=== PATIENT | male | born 1980 | race Caucasian/White ===

== ENCOUNTER 2022-04-20 20:39 | Inpatient (IN) | payer OTHER ==
[2022-04-20 21:41] LABS: Absolute Lymphocytes (CBC) 2.7 K/uL (0.7-4.9); Hematocrit 44.6 % (39.6-49.0); Lymphocytes % 34.3 % (15.3-44.8); MCV 94.3 fL (80-100); MPV 7.5 fL (7.6-11.3); RBC Red Blood Cell Count 4.73 M/uL (4.33-5.43)
[2022-04-20 21:49] LABS: Protime INR 1.06
[2022-04-20] MEDS ORDERED: MECLIZINE HCL 12.5 MG TAB ONE (22:02)
[2022-04-20] MEDS ORDERED: NA CHLORIDE 0.9% 1,000 ML ONE (22:03)
[2022-04-20 22:10] LABS: Barbiturates NEGATIVE (NEGATIVE); Benzodiazepines POSITIVE (NEGATIVE); Cocaine NEGATIVE (NEGATIVE); METHAMPHETAM NEGATIVE (NEGATIVE); Methadone NEGATIVE (NEGATIVE); Opiates NEGATIVE (NEGATIVE); Phencyclidine NEGATIVE (NEGATIVE); THC Cannibis NEGATIVE (NEGATIVE)
[2022-04-20 22:14] LABS: Potassium 3.4 mmol/L (3.5-5.1)
--- NOTE | 2022-04-20 22:14 | RAD REPORT ---
EXAM DESCRIPTION: CT - Head Brain Wo Cont - 04/20/2022 10:04 pm CLINICAL HISTORY: dizziness, diplopia COMPARISON: None TECHNIQUE: All CT scans are performed using dose optimization technique as appropriate and may inclu de automated exposure control or mA/KV adjustment according to patient size. FINDINGS: No intracranial hemorrhage, hydrocephalus or extra-axial fluid collection.No areas of brai n edema or evidence of midline shift. Anthony cisterna magna. The paranasal sinuses and mastoids are clear. The calvarium is intact. IMPRESSION: No acute intracranial abnormality.
--- NOTE | 2022-04-20 22:15 | RAD REPORT ---
EXAM DESCRIPTION: CT - Neck Angio - 04/20/2022 10:08 pm CLINICAL HISTORY: dizziness, diplopia COMPARISON: No comparisons TECHNIQUE: CT angiography of the neck vessels was performed with MIPs. All CT scans are performed using dose optimization technique as appropriate and may include automated exposure control or mA/KV adjustment according to patient size. FINDINGS: A left aortic arch is identified with normal three vessel configuration of the great vesse ls. No significant flow abnormality is seen of the common carotid bilaterally. No significant stenosis is identified involving the cervical segments of both internal carotid arteri es. Normal flow is seen within both vertebral arteries. IMPRESSION: No significant flow abnormality of the neck vessels is identified.
[2022-04-20 22:16] LABS: SARS-CoV-2 Antigen Rapid Res Negative (Negative)
--- NOTE | 2022-04-20 22:16 | RAD REPORT ---
EXAM DESCRIPTION: CT - Head angio - 04/20/2022 10:08 pm CLINICAL HISTORY: dizziness, diplopia COMPARISON: No comparisons TECHNIQUE: CT angiography of the head was performed with MIPs. All CT scans are performed using dose optimization technique as appropriate and may include automated exposure control or mA/KV adjustment according to patient size. FINDINGS: Anterior circulation: No aneurysm or large vessel occlusion. No hemodynamically significant stenosis. No arteriovenous malf ormation identified. Posterior circulation: No aneurysm or large vessel occlusion. No hemodynamically significant stenosis. No arteriovenous malf ormation identified. IMPRESSION: No significant flow abnormality is detected.
--- NOTE | 2022-04-20 22:23 | ER ---
Nurse's Notes [facility] Name: Frandy Victor Age: 41 yrs Sex: Male : 1980 Arrival Date: 04/20/2022 Time: 20:40 Bed 5 Private MD: Diagnosis: Ataxia, unspecified;Unspecified nystagmus;Phenytoin toxicity Presentation: 04/20 20:46 Chief complaint: Patient states: I have been feeling dizzy for the past three days. kd3 Chief complaint: EMS states: pt. has been complaining of dizziness for the past three days. pt. states took sister's Trazodone yesterday and also reports vomiting this morning. vital signs stables during transport. Ebola Screen: No symptoms or risks identified at this time. Initial Sepsis Screen: Does the patient meet any 2 criteria? No. Patient's initial sepsis screen is negative. Does the patient have a suspected source of infection? No. Patient's initial sepsis screen is negative. Risk Assessment: Do you want to hurt yourself or someone else? Patient reports no desire to harm self or others. Onset of symptoms was April 17, 2022. 20:46 Method Of Arrival: EMS: [facility] kd3 20:46 Acuity: DAVID 3 kd3 23:51 Coronavirus screen: Vaccine status: Patient reports being unvaccinated. ha1 Triage Assessment: 20:46 General: Appears in no apparent distress. Behavior is calm, cooperative. Pain: Denies kd3 pain. Historical: - Allergies: 22:11 Keppra; kd3 - Immunization history:: Client reports receiving the 2nd dose of the Covid vaccine. - Social history:: Smoking status: unknown. - Family history:: not pertinent. - Hospitalizations: : No recent hospitalization is reported. Screenin:40 Abuse screen: Denies threats or abuse. Denies injuries from another. kd3 20:40 Nutritional screening: No deficits noted. Tuberculosis screening: No symptoms or risk kd3 factors identified. Fall Risk Gait- Weak (10 pts.). Total Renee Fall Scale indicates No Risk (0-24 pts). Assessment: 20:41 General: Appears in no apparent distress. Behavior is calm, cooperative. Pain: Denies kd3 pain. Neuro: Reports diplopia, dizziness. Neuro: Oriented to person, place, time, situation, Speech is normal. Cardiovascular: Capillary refill < 3 seconds Patient's skin is warm and dry. Respiratory: Airway is patent Trachea midline Respiratory effort is even, unlabored, Respiratory pattern is regular, symmetrical. GI: No signs and/or symptoms were reported involving the gastrointestinal system. : No signs and/or symptoms were reported regarding the genitourinary system. EENT: No deficits noted. No signs and/or symptoms were reported regarding the EENT system. Derm: Reports felling at home three days ago and bruise his face. 21:35 Reassessment: Patient and/or family updated on plan of care and expected duration. Pain kd3 level reassessed. Patient is alert, oriented x 3, equal unlabored respirations, skin warm/dry/pink. Vital Signs: 20:44 BP 125 / 85; Pulse 88; Resp 16 S; Temp 98.9; Pulse Ox 95% on R/A; Weight 63.5 kg; kd3 21:45 BP 117 / 89; Pulse 83; Resp 18 S; Pulse Ox 98% on R/A; kd3 ED Course: 20:40 Patient arrived in ED. kd3 20:43 Neeraj Glover MD is Attending Physician. rn 20:46 Arm band placed on right wrist. kd3 20:46 Patient has correct armband on for positive identification. Bed in low position. Call kd3 light in reach. Side rails up X 1. 20:51 Triage completed. kd3 20:54 Irasema Ying, RN is Primary Nurse. kd3 21:26 Basic Metabolic Panel Sent. kd3 21:27 CBC with Diff Sent. kd3 21:27 Magnesium Sent. kd3 21:27 Inserted saline lock: 20 gauge in left antecubital area, using aseptic technique. Blood kd3 collected. 21:49 SARS RAPID Sent. kd3 21:50 Basic Metabolic Panel Sent. kd3 21:50 Magnesium Sent. kd3 21:59 SARS RAPID Sent. kd3 22:06 CT Head Brain wo Cont In Process Unspecified. EDMS 22:09 CT Head Angio In Process Unspecified. EDMS 22:[address] In Process Unspecified. EDMS 22:21 Chilango Mcallister MD is Hospitalizing Provider. rn 23:51 No provider procedures requiring assistance completed. Patient admitted, IV remains in ha1 place. Administered Medications: 21:58 Drug: Meclizine 50 mg Route: PO; kd3 22:13 Follow up: Response: No adverse reaction kd3 21:59 Drug: NS 0.9% 1000 ml Route: IV; Rate: 1000 ml; Site: left antecubital; kd3 23:52 Follow up: IV Status: Infusion continued ha1 23:13 Drug: Nicoderm CQ Patch 21 mg/24 hr 21 mg Route: Transdermal; Site: right thigh; kd3 23:23 Drug: clonazePAM 1 mg Route: PO; kd3 23:52 Follow up: Response: No adverse reaction; Anxiety decreased ha1 Medication: 23:51 VIS not applicable for this client. ha1 Outcome: 22:22 Decision to Hospitalize by Provider. rn 23:51 Admitted to Med/surg ha1 23:51 Condition: stable 23:51 Discharge instructions given to patient, Instructed on the need for admit, Demonstrated understanding of instructions, follow-up care. 23:55 Patient left the ED. ha1 Signatures: Dispatcher [employer] EDMS Neeraj Glover MD MD rn Doucette, Kyli, RN RN 3 Angelica Yao RN RN ha1
--- NOTE | 2022-04-20 22:23 | EDPHYS ---
Physician Documentation [facility] Name: Frandy Victor Age: 41 yrs Sex: Male : 1980 Arrival Date: 04/20/2022 Time: 20:40 Bed 5 Private MD: ED Physician Neeraj Glover HPI: 04/20 20:59 This 41 yrs old Male presents to ER via EMS with complaints of dizziness. rn 20:59 The patient presents with vertigo. Onset: The symptoms/episode began/occurred 3 day(s) rn ago. Context: occurred at home, occurred while the patient was at rest. Modifying factors: The symptoms are alleviated by closing eyes, holding head still, lying down, the symptoms are aggravated by movement of head, standing up, changing position. Associated signs and symptoms: Pertinent positives: ataxia, double vision. Severity of symptoms: At their worst the symptoms were moderate in the emergency department the symptoms are unchanged. The patient has not experienced similar symptoms in the past. The patient has not recently seen a physician. Pt reports 3 days of vertigo, nausea, double vision. Reports symptoms of vertigo come and go, better with laying down and closing eyes. Has fallen several times, head injuries from falls, denies extremity injuries. Reports day prior to these symptoms took 2 trazodone from sister. No other medication changes recently. No seizures. No change to dilantin prescription recently. NO chest pain/sob/diarrhea. . Historical: - Allergies: 22:11 Keppra; kd3 - Immunization history:: Client reports receiving the 2nd dose of the Covid vaccine. - Social history:: Smoking status: unknown. - Family history:: not pertinent. - Hospitalizations: : No recent hospitalization is reported. ROS: 20:59 Constitutional: Negative for fever, chills, and weight loss, Eyes: + double vision, no rn eye pain ENT: Negative for injury, pain, and discharge, Neck: Negative for injury, pain, and swelling, Cardiovascular: Negative for chest pain, palpitations, and edema, Respiratory: Negative for shortness of breath, cough, wheezing, and pleuritic chest pain, Abdomen/GI: Negative for abdominal pain, vomiting, diarrhea, and constipation, Back: Negative for injury and pain, MS/Extremity: Negative for injury and deformity, Skin: Negative for injury, rash, and discoloration, Neuro: Negative for weakness, numbness, tingling, and seizure. Exam: 20:59 Constitutional: This is a well developed, well nourished patient who is awake, alert, rn and in no acute distress. Head/Face: Normocephalic, atraumatic. Eyes: Pupils equal round and reactive to light, extra-ocular motions intact. + diplopia with both eyes open, goes away when closing each eye. + nystagmus. ENT: dry MM Neck: Trachea midline, no thyromegaly or masses palpated, and no cervical lymphadenopathy. Supple, full range of motion without nuchal rigidity, or vertebral point tenderness. No Meningismus. Cardiovascular: Regular rate and rhythm. No pulse deficits. Respiratory: No increased work of breathing, no retractions or nasal flaring. Abdomen/GI: Soft, non-tender Skin: Warm, dry with normal turgor. Normal color with no rashes, no lesions, and no evidence of cellulitis. MS/ Extremity: Pulses equal, no cyanosis. Neurovascular intact. Full, normal range of motion. Equal circumference. Neuro: Awake and alert, GCS 15, oriented to person, place, time, and situation. Cranial nerves II-XII grossly intact. Motor strength 5/5 in all extremities. Sensory grossly intact. Abnormal finger to nose. Gait not tested. 22:27 ECG was reviewed by the Attending Physician. rn Vital Signs: 20:44 BP 125 / 85; Pulse 88; Resp 16 S; Temp 98.9; Pulse Ox 95% on R/A; Weight 63.5 kg; kd3 21:45 BP 117 / 89; Pulse 83; Resp 18 S; Pulse Ox 98% on R/A; kd3 MDM: 20:43 Patient medically screened. rn 22:18 Differential diagnosis: idiopathic dizziness, TIA, vertigo, dilantin toxicity, rn aneurysm. Differential diagnosis: CVA. Data reviewed: vital signs, nurses notes, lab test result(s), EKG, radiologic studies, CT scan, and as a result, I will admit patient. Counseling: I had a detailed discussion with the patient and/or guardian regarding: the historical points, exam findings, and any diagnostic results supporting the discharge/admit diagnosis, lab results, radiology results, the need for further work-up and treatment in the hospital. Response to treatment: the patient's symptoms have mildly improved after treatment, and as a result, I will admit patient. Admission orders: after a detailed discussion of the patient's condition and case, the admit orders are written by me. ED course: Dilantin level 38, neg ct head and CTA head/neck. Dilantin toxicity could explain ataxia/nausea/vomiting/nsytagmus. Will admit for symptoms and neuro consult. . 22:18 ED course: Not an acute overdose, likely chronic toxicity, patient with multiple rn bottles of phenytoin and may be taking incorrect amount. . 04/20 20:45 Order name: Dilantin; Complete Time: 22:36 rn 04/20 20:45 Order name: Basic Metabolic Panel; Complete Time: 22:36 rn 04/20 20:45 Order name: CBC with Diff; Complete Time: 22: rn 04/20 20:45 Order name: Magnesium; Complete Time: 22:36 rn 04/20 20:45 Order name: Protime (+inr); Complete Time: 22:13 rn 04/20 20:45 Order name: Ptt, Activated; Complete Time: 22: rn 04/20 20:45 Order name: CT Head Brain wo Cont; Complete Time: 22:17 rn 04/20 20:45 Order name: CT Head Angio; Complete Time: 22: rn 04/20 20:45 Order name: Neck Angio CT; Complete Time: 22: rn 04/20 20:45 Order name: UDS; Complete Time: 22:13 rn 04/20 20:45 Order name: SARS RAPID; Complete Time: 22: rn 04/20 22:24 Order name: Urine Dipstick-Ancillary; Complete Time: 22:25 EDOR 04/20 20:45 Order name: IV Start; Complete Time: 21:50 rn 04/20 20:45 Order name: EKG; Complete Time: 20:46 rn 04/20 20:45 Order name: Cardiac monitoring; Complete Time: 21:27 rn 04/20 20:45 Order name: EKG - Nurse/Tech; Complete Time: 21:49 rn 04/20 20:45 Order name: Labs collected and sent; Complete Time: 21:27 rn 04/20 20:45 Order name: O2 Per Protocol; Complete Time: 21:27 rn 04/20 20:45 Order name: O2 Sat Monitoring; Complete Time: 21:27 rn 04/20 20:45 Order name: Urine Dipstick-Ancillary (obtain specimen); Complete Time: 22:31 rn EC: Rate is 84 beats/min. Rhythm is regular. QRS [place] is Normal. SD interval is normal. QRS rn interval is normal. QT interval is normal. No Q waves. T waves are Normal. No ST changes noted. Clinical impression: Normal ECG. Interpreted by me. Reviewed by me. Administered Medications: :58 Drug: Meclizine 50 mg Route: PO; kd3 22:13 Follow up: Response: No adverse reaction kd3 21:59 Drug: NS 0.9% 1000 ml Route: IV; Rate: 1000 ml; Site: left antecubital; kd3 23:52 Follow up: IV Status: Infusion continued ha1 23:13 Drug: Nicoderm CQ Patch 21 mg/24 hr 21 mg Route: Transdermal; Site: right thigh; kd3 23:23 Drug: clonazePAM 1 mg Route: PO; kd3 23:52 Follow up: Response: No adverse reaction; Anxiety decreased ha1 Disposition Summary: 04/20/22 22:22 Hospitalization Ordered Hospitalization Status: Inpatient Admission rn Provider: Chilango Mcallister rn Condition: Stable rn Problem: new rn Symptoms: have improved rn Bed/Room Type: Standard rn Location: Telemetry/MedSurg (Inpatient)(04/20/22 22:55) mw Room Assignment: 203(04/20/22 23:01) mw Diagnosis - Ataxia, unspecified rn - Unspecified nystagmus rn - Phenytoin toxicity rn Forms: - Medication Reconciliation Form rn - SBAR form rn Signatures: Dispatcher [employer] Stormy Howe RN RN Neeraj Gonsales MD MD rn Doucette, Kyli, RN RN kd3 Luciana Wong PA PA sb3 Angelica Yao RN ha1 Corrections: (The following items were deleted from the chart) 22:55 22: Telemetry/MedSurg (Inpatient) rn mw 22:55 22:22 rn mw 22:55 22:55 203 mw mw 23:01 22:55 mw mw
[2022-04-20 22:24] LABS: Urine Blood Negative (Negative); Urine Glucose Negative (Negative); Urine Protein Negative (Negative); Urine pH 6.5 (5.0-7.0)
[2022-04-20 22:30] LABS: Phenytoin (Dilantin) Level 38.9 ug/mL (10.0-20.0)
--- NOTE | 2022-04-20 23:06 | P.HP ---
Certification for Inpatient Patient admitted to: Inpatient With expected LOS: <2 Midnights Patient will require the following post-hospital care: None Practitioner: I am a practitioner with admitting privileges, knowledge of patient current condition, hospital course, and medical plan of care. Services: Services provided to patient in accordance with Admission requirements found in Title 42 Section 412.3 of the Code of Federal Regulations Patient History Date of Service: 04/20/22 Reason for admission: Phenytoin Toxicity History of Present Illness: Patient is a an 41-year-old male with history of seizure disorder, mitral valve prolapse, and PTSD who presented to the ED with worsening dizziness for 3 days now. Patient reports that he has been taking Dilantin since 2007 and has never had any issues with it. He denies any recent change in dosing. However, he does state that he has been taking his sister's trazodone to help with his insomnia. Abrasions noted to his face from falling from dizziness/incoordination. Ataxia noted. Fine motor skills impaired- cannot successfully touch my finger to his nose repeatedly. His dilantin level was 38.9. Brain imaging negative. The drug interaction between dilantin and trazodone can cause an increase in dilantin levels and result in these symptoms. He was given meclizine and IVF in the ED. He is admitted for further management. Home medications list reviewed: Yes - Past Medical/Surgical History Diabetic: No -: Seizure Disorder -: PTSD -: Mitral Valve Prolapse -: Umbilical Hernia Repair Psychosocial/ Personal History: Patient just recently moved here from [place]. - Family History Mother -: Heart disease - Social History Smoking Status: Current every day smoker Alcohol use: No CD- Drugs: No Caffeine use: Yes Place of Residence: Home Review of Systems Eyes: Other (Nystagmus) Neurological: Incoordination, Other (Dizziness) Physical Examination - Physical Exam General: Alert, In no apparent distress HEENT: PERRLA, Other (abrasions noted to nose and forehead), Sclerae nonicteric Neck: Supple, No LAD Respiratory: Clear to auscultation bilaterally, Normal air movement Cardiovascular: Regular rate/rhythm, Normal S1 S2 Gastrointestinal: Normal bowel sounds, No tenderness Musculoskeletal: No tenderness Integumentary: No rashes Neurological: Normal strength at 5/5 x4 extr, Sensation intact, Normal affect, Abnormal gait - Studies Laboratory Data (last 24 hrs) 04/20/22 21:22: PT 11.7, INR 1.06, APTT 30.0 04/20/22 21:22: WBC 7.90, Hgb 16.0, Hct 44.6, Plt Count 243 04/20/22 21:22: Sodium 143, Potassium 3.4 L, BUN 5 L, Creatinine 0.94, Glucose 140 H, Magnesium 2.0 Assessment and Plan - Problems (Diagnosis) (1) Phenytoin toxicity Current Visit: Yes Status: Acute Qualifiers: Encounter type: initial encounter (2) Hypokalemia Current Visit: Yes Status: Acute (3) PTSD (post-traumatic stress disorder) Current Visit: Yes Status: Chronic (4) Seizure disorder Current Visit: Yes Status: Chronic - Plan -Symptoms- ataxia, dizziness, incoordination, are most likely secondary to phenytoin toxicity -Monitor patient on telemetry -Neurology consult -IV fluids -Meclizine PRN -Dilantin level daily -Monitor and replete electrolytes per protocol -Reconcile and continue home medications -Lovenox for VTE ppx -Full code Discharge Plan: Home Plan to discharge in: 48 Hours - Advance Directives Does patient have a Living Will: No Does patient have a Durable POA for Healthcare: No - Code Status/Comfort Care Code Status Assessed: Yes (Full) Critical Care: No Time Spent Managing Pts Care (In Minutes): 50
[2022-04-20] MEDS ORDERED: NICOTINE 21 MG/PAT TD ONE (23:12)
[2022-04-20] MEDS ORDERED: clonazePAM 1 MG TAB ONE (23:31)
[2022-04-20] MEDS ORDERED: ACETAMINOPHEN 500 MG TAB PO PRN (23:59)
[2022-04-20] MEDS ORDERED: clonazePAM 1 MG TAB PO PRN (23:59)
[2022-04-20] MEDS ORDERED: MECLIZINE HCL 12.5 MG TAB PO PRN (23:59)
[2022-04-20] MEDS ORDERED: ONDANSETRON 4 MG/2 ML VIAL IV PRN (23:59)
[2022-04-21] MEDS: NA CHLORIDE 0.9% 1,000 ML IV SCH ×4 (00:27→19:59)
[2022-04-21 01:26] VITALS: BMI 21.9
[2022-04-21] MEDS: TAMSULOSIN 0.4 MG SR CAP PO SCH ×2 (02:37→21:11)
[2022-04-21] MEDS: GABAPENTIN 300 MG CAP PO SCH ×3 (02:37→21:11)
[2022-04-21] MEDS: OLANZapine 10 MG TABLET PO SCH ×2 (02:38→21:10)
[2022-04-21] MEDS: TEMAZEPAM 15 MG CAP PO SCH ×2 (02:39→21:09)
[2022-04-21] MEDS: AMITRIPTYLINE 50 MG TAB PO SCH ×2 (02:39→21:11)
[2022-04-21 06:33] LABS: Absolute Lymphocytes (CBC) 2.5 K/uL (0.7-4.9); Lymphocytes % 38.7 % (15.3-44.8); MCV 94.1 fL (80-100); MPV 7.4 fL (7.6-11.3); RBC Red Blood Cell Count 4.26 M/uL (4.33-5.43)
[2022-04-21 07:08] LABS: Phosphorus 2.3 mg/dL (2.5-4.9); Potassium 3.5 mmol/L (3.5-5.1); Thyroid Stimulating Hormone 1.44 uIU/mL (0.360-3.740)
[2022-04-21 07:11] LABS: Phenytoin (Dilantin) Level 33.4 ug/mL (10.0-20.0)
[2022-04-21] MEDS: POTASS/SODIUM PHOSPHATE 1 PKT POWD.PACK PO SCH ×3 (08:39→11:12)
[2022-04-21] MEDS: NICOTINE 21 MG/PAT TD SCH (08:40)
[2022-04-21] MEDS: ENOXAPARIN 40 MG/0.4 ML SQ SCH (08:40)
[2022-04-21] MEDS ORDERED: POTASSIUM CL SA 10 MEQ TAB PO ONE (09:00)
[2022-04-21] MEDS: clonazePAM 1 MG TAB PO SCH (09:53)
[2022-04-21 11:40] VITALS: O2SAT 95
--- NOTE | 2022-04-21 13:43 | P.PN ---
Subjective Date of Service: 04/21/22 Chief Complaint: Phenytoin Toxicity Patient complaining of diplopia. Speech is also slurred. Phenytoin level trended down. Physical Examination - Vital Signs Temperature: 97.1 F Blood Pressure: 113/76 Pulse: 78 Respirations: 20 Pulse Ox (%): 95 - Studies Laboratory Data (last 24 hrs) 04/20/22 21:22: PT 11.7, INR 1.06, APTT 30.0 04/20/22 21:22: WBC 7.90, Hgb 16.0, Hct 44.6, Plt Count 243 04/20/22 21:22: Sodium 143, Potassium 3.4 L, BUN 5 L, Creatinine 0.94, Glucose 140 H, Magnesium 2.0 Assessment And Plan - Current Problems (Diagnosis) (1) Hypokalemia Current Visit: Yes Status: Acute (2) Phenytoin toxicity Current Visit: Yes Status: Acute Qualifiers: Encounter type: initial encounter (3) PTSD (post-traumatic stress disorder) Current Visit: Yes Status: Chronic (4) Seizure disorder Current Visit: Yes Status: Chronic - Plan Physical Exam General: Alert, In no apparent distress HEENT: abrasions noted to bridge of nose and forehead. Sclerae nonicteric, no nystagmus. Respiratory: Clear to auscultation bilaterally, Normal air movement Cardiovascular: Regular rate/rhythm, Normal S1 S2 Gastrointestinal: Normal bowel sounds, No tenderness Musculoskeletal: No tenderness Integumentary: No rashes Neurological: Normal strength at 5/5 x4 extr. Normal affect. Plan: Continue supportive measures with IV hydration. Continue to hold Dilantin Check serial phenytoin levels. Continue home medications for his other medical conditions. Monitor and optimize electrolytes.
[2022-04-21] MEDS ORDERED: ACETAMINOPHEN 325 MG TABLET PO PRN (13:47)
[2022-04-21] MEDS ORDERED: METHYLPHENIDATE HCL 20 MG PO SCH (14:00)
[2022-04-21] MEDS ORDERED: CELECOXIB 100 MG CAPSULE PO PRN (14:08)
[2022-04-21] MEDS: PANTOPRAZOLE 40MG TABLET PO SCH (15:52)
[2022-04-21] MEDS ORDERED: clonazePAM 1 MG TAB PO SCH (16:00)
[2022-04-21] MEDS: SUCRALFATE 1 GM TABLET PO SCH (21:09)
[2022-04-22] MEDS: NA CHLORIDE 0.9% 1,000 ML IV SCH (04:51)
--- NOTE | 2022-04-22 05:40 | EKG ---
Test Date: 2022-04-20 Test Time: 21:43:16 Air Bag Curer: MIRELLA MEASUREMENT RESULTS: Intervals: Rate: 84 IA: 138 QRSD: 88 QT: 386 QTc: 456 Accord: P: 76 IA: 138 QRS: 7 T: 70 INTERPRETIVE STATEMENTS: Normal sinus rhythm Normal ECG No previous ECG available for comparison Electronically Signed On 04-22-22 05:38:08 CDT by Shady Leyva
[2022-04-22] MEDS: PANTOPRAZOLE 40MG TABLET PO SCH (05:56)
[2022-04-22 06:24] LABS: Phenytoin (Dilantin) Level 28.6 ug/mL (10.0-20.0); Phosphorus 2.3 mg/dL (2.5-4.9); Potassium 3.8 mmol/L (3.5-5.1)
[2022-04-22 06:35] LABS: Absolute Lymphocytes (CBC) 1.9 K/uL (0.7-4.9); Lymphocytes % 32.8 % (15.3-44.8); MCV 94.9 fL (80-100); MPV 7.3 fL (7.6-11.3)
[2022-04-22 07:15] LABS: Anisocytosis 1+; Blood Morphology Comment NOTED (NOT SEEN); Hypochromasia 1+; Macrocytosis 1+; Platelet Estimate ADEQ; White Blood Cell Scan OK (OK)
[2022-04-22] MEDS ORDERED: VITAMIN D 1000 UNIT TAB PO SCH (09:00)
[2022-04-22] MEDS ORDERED: MAGNESIUM OXIDE 400 MG TAB PO SCH (09:00)
[2022-04-22] MEDS: GABAPENTIN 300 MG CAP PO SCH (09:36)
[2022-04-22] MEDS: SUCRALFATE 1 GM TABLET PO SCH (09:36)
[2022-04-22] MEDS: clonazePAM 1 MG TAB PO SCH (09:37)
[2022-04-22] MEDS: NICOTINE 21 MG/PAT TD SCH (09:37)
[2022-04-22] MEDS: ENOXAPARIN 40 MG/0.4 ML SQ SCH (09:37)
--- NOTE | 2022-04-22 10:08 | P.DS ---
Admission Date: 04/20/22 Discharge Date: 04/22/22 Disposition: ROUTINE DISCHARGE Discharge Condition: FAIR Reason for Admission: Phenytoin Toxicity - Problems (1) Hypokalemia Status: Acute (2) Phenytoin toxicity Status: Acute Qualifiers: Encounter type: initial encounter (3) PTSD (post-traumatic stress disorder) Status: Chronic (4) Seizure disorder Status: Chronic Brief History of Present Illness: Patient is a an 41-year-old male with history of seizure disorder, mitral valve prolapse, and PTSD who presented to the ED with worsening dizziness for 3 days now. Patient reports that he has been taking Dilantin since 2007 and has never had any issues with it. He denies any recent change in dosing. However, he does state that he has been taking his sister's trazodone to help with his insomnia. Abrasions noted to his face from falling from dizziness/incoordination. Ataxia noted. Fine motor skills impaired- cannot successfully touch my finger to his nose repeatedly. His dilantin level was 38.9. Brain imaging negative. The drug interaction between dilantin and trazodone can cause an increase in dilantin levels and result in these symptoms. He was given meclizine and IVF in the ED. He was admitted for further management. Hospital Course: Patient admitted to the medical floor and treated with supportive measures. He was hydrated with IV fluid and Dilantin level monitored. Dilantin level trended down to almost normal. Patient symptoms improved with treatment. He ambulated without ataxia or gait instability, diplopia resolved. Vitals have been stable. Patient is deemed stable for discharge. Dilantin toxicity likely related to drug interaction. There has not been any recent change in his Dilantin dose. He is informed to resume his Dilantin tomorrow. Vital Signs/Physical Exam: Temp Pulse Resp BP Pulse Ox 97 F 75 19 96/57 L 95 04/22/22 04:00 04/22/22 04:00 04/22/22 04:00 04/22/22 04:00 04/22/22 04:00 General: Alert, In no apparent distress, Oriented x3 HEENT: PERRLA, Mucous membr. moist/pink, EOMI, Sclerae nonicteric Neck: Supple, JVD not distended Respiratory: Clear to auscultation bilaterally, Normal air movement Cardiovascular: No edema, Regular rate/rhythm, Normal S1 S2, No murmurs Gastrointestinal: Normal bowel sounds, Soft and benign, Non-distended, No tenderness Musculoskeletal: No swelling, No tenderness Integumentary: No rashes, No cyanosis Neurological: Normal gait, Normal speech, Normal strength at 5/5 x4 extr, Cranial nerves 3-12 intact Laboratory Data at Discharge: WBC 5.70 K/uL (4.3-10.9) 04/22/22 05:44 Hgb 13.6 g/dL (13.6-17.9) 04/22/22 05:44 Hct 38.0 % (39.6-49.0) L 04/22/22 05:44 Plt Count 195 K/uL (152-406) 04/22/22 05:44 PT 11.7 SECONDS (9.5-12.5) 04/20/22 21:22 INR 1.06 04/20/22 21:22 APTT 30.0 SECONDS (24.3-36.9) 04/20/22 21:22 Sodium 144 mmol/L (136-145) 04/22/22 05:44 Potassium 3.8 mmol/L (3.5-5.1) 04/22/22 05:44 BUN 5 mg/dL (7-18) L 04/22/22 05:44 Creatinine 0.74 mg/dL (0.55-1.3) 04/22/22 05:44 Glucose 85 mg/dL (74-106) 04/22/22 05:44 Phosphorus 2.3 mg/dL (2.5-4.9) L 04/22/22 05:44 Magnesium 2.0 mg/dL (1.8-2.4) 04/21/22 06:00 Triglycerides 122 mg/dL (<150) 04/21/22 06:00 Cholesterol 134 mg/dL (<200) 04/21/22 06:00 HDL Cholesterol 50 mg/dL (40-60) 04/21/22 06:00 Cholesterol/HDL Ratio 2.68 04/21/22 06:00 Home Medications: Acetaminophen 2 tab PO Q8H PRN 04/21/22 Amitriptyline HCl 100 mg PO BEDTIME 04/21/22 Celecoxib 200 mg PO BID PRN 04/21/22 Cholecalciferol (Vitamin D3) [Vitamin D3] 1,000 unit PO DAILY 04/21/22 Esomeprazole Mag Trihydrate [Nexium] 40 mg PO BID 04/21/22 Gabapentin 600 mg PO BID 04/21/22 Magnesium Oxide 500 mg PO DAILY 04/21/22 Methylphenidate HCl [Ritalin] 20 mg PO SEECOM 04/21/22 OLANZapine [Zyprexa] 15 mg PO BEDTIME 04/21/22 Phenytoin Sodium Extended [Dilantin] 2 tab PO DAILY 04/21/22 Phenytoin Sodium Extended [Dilantin] 3 tab PO BEDTIME 04/21/22 Prazosin HCl [Minipress] 10 mg PO BEDTIME 04/21/22 Simethicone [Mylicon*] 80 mg PO Q8H PRN 04/21/22 Sucralfate [Carafate*] 1 gm PO BID 04/21/22 Tamsulosin HCl 2 cap PO BEDTIME 04/21/22 Temazepam 30 mg PO BEDTIME 04/21/22 clonazePAM [Clonazepam] 1 mg PO SEECOM 04/21/22 clonazePAM [Clonazepam] 1 mg PO SEECOM 04/21/22 Cholecalciferol (Vitamin D3) [Vitamin D 1000 Iu Tab*] 1,000 unit PO DAILY tab 04/22/22 clonazePAM [Klonopin*] 1 mg PO DAILY@1000 tab 04/22/22 Physician Discharge Instructions: PLease do not take your phenytoin today. You can resume taking it from tomorrow. Diet: Regular Activity: Fall precautions Followup: Chandu Beebe MD [ASSOCIATE-ACTIVE - CAN ADMIT] - Unknown,U [Primary Care Provider] - Time spent managing pt's care (in minutes): 32
[2022-04-22 10:22] VITALS: BP 97/67; TEMP 98
== END 2022-04-22 10:57 | disposition home or self-care (01) | DRG 93 ==
LOC: ER 20:39 → 2ND 22:57
PROVIDERS: ADMIT Internal Medicine; ATTEND Internal Medicine
DX: R27.0 Ataxia, unspecified (principal); R42 Dizziness and giddiness; H53.2 Diplopia; E87.6 Hypokalemia; F43.12 Post-traumatic stress disorder, chronic; G40.909 Epilepsy, unspecified, not intractable, without status epilepticus; F17.200 Nicotine dependence, unspecified, uncomplicated; T42.0X5A Adverse effect of hydantoin derivatives, initial encounter; Z20.822 Contact with and (suspected) exposure to COVID-19
CPT/HCPCS: 36415; 70450; 70496; 70498; 80048; 80061; 80185; 80307; 81003; 82565; 83735; 84100; 84443; 85025; 85610; 85730; 87811; 93005; 96360; 96361; 97161; 99285; J1650; J2405; J7030; J8597; Q9967

== ENCOUNTER 2022-07-12 16:13 | Emergency (ER) | payer OTHER ==
[2022-07-12 17:27] LABS: Absolute Lymphocytes (CBC) 2.1 K/uL (0.7-4.9); Hematocrit 42.7 % (39.6-49.0); Lymphocytes % 25.8 % (15.3-44.8); MPV 7.7 fL (7.6-11.3); RBC Red Blood Cell Count 4.27 M/uL (4.33-5.43)
[2022-07-12 17:30] LABS: Protime INR 0.96
[2022-07-12 18:02] LABS: ALT/SGPT 22 U/L (12-78); AST/SGOT 14 U/L (15-37); Albumin 4.4 g/dL (3.4-5.0); Alkaline Phosphatase 121 U/L (45-117); BUN Blood Urea Nitrogen 8 mg/dL (7-18); Bicarbonate 28 mmol/L (21-32); Bilirubin Direct 0.2 mg/dL (0-0.2); Bilirubin Total 0.5 mg/dL (0.2-1.0); Glomerular Filtration Rate 111 ml/min (=/>90); Glucose Level 110 mg/dL (74-106); Protein, Total 7.8 g/dL (6.4-8.2); Sodium Level 138 mmol/L (136-145)
[2022-07-12] MEDS ORDERED: NA CHLORIDE 0.9% 1,000 ML ONE (18:13)
[2022-07-12] MEDS ORDERED: LORazepam 2 MG/ML VIAL ONE (18:13)
[2022-07-12 18:38] LABS: Barbiturates NEGATIVE (NEGATIVE); Benzodiazepines NEGATIVE (NEGATIVE); Cocaine NEGATIVE (NEGATIVE); METHAMPHETAM NEGATIVE (NEGATIVE); Methadone NEGATIVE (NEGATIVE); Opiates NEGATIVE (NEGATIVE); Phencyclidine NEGATIVE (NEGATIVE); THC Cannibis POSITIVE (NEGATIVE)
--- NOTE | 2022-07-12 18:38 | EDPHYS ---
Physician Documentation [facility] Name: Frandy Victor Age: 42 yrs Sex: Male : 1980 Arrival Date: 07/12/2022 Time: 16:19 Bed DIS3 Private MD: ED Physician Neeraj Glover HPI: 07/12 16:55 This 42 yrs old Male presents to ER via Ambulatory with complaints of Medication Refill.cp 16:55 The patient presents to the emergency department requesting refill(s) for: psych cp medications. The patient chronically suffers from Anxiety, PTSD. 16:55 Patient reports running out of prescribed psych medications about 1 week ago and cp concerned that he is going through withdrawals. Patient reports losing medications while riding bus and that he sees provider at [facility] in [place]. Is staying with family and awaiting medications in the mail. Historical: - Allergies: 16:45 Keppra; kb3 - PMHx: 16:45 Anxiety; PTSD; Gastric Ulcers; kb3 - PSHx: 16:45 Hernia repair; kb3 - Immunization history:: Adult Immunizations up to date, Client reports receiving the 2nd dose of the Covid vaccine, Last tetanus immunization: unknown. - Social history:: Smoking status: Patient reports the use of cigarette tobacco products, smokes one pack cigarettes per day. ROS: 17:00 Constitutional: Negative for body aches, chills, fever, poor PO intake. cp 17:00 Eyes: Negative for injury, pain, redness, and discharge. cp 17:00 ENT: Negative for drainage from ear(s), tinnitus, sore throat, difficulty swallowing, difficulty handling secretions. 17:00 Cardiovascular: Negative for chest pain. 17:00 Respiratory: Negative for cough, shortness of breath, wheezing. 17:00 Abdomen/GI: Negative for abdominal pain, vomiting, diarrhea, constipation. 17:00 Neuro: Negative for altered mental status, dizziness, headache, weakness. 17:00 All other systems are negative. Exam: 17:05 Constitutional: The patient appears in no acute distress, alert, awake, cp non-diaphoretic, well developed, well nourished, anxious. 17:05 Head/Face: Normocephalic, atraumatic. cp 17:05 Eyes: Periorbital structures: appear normal, Pupils: equal, round, and reactive to light and accomodation, Extraocular movements: intact throughout, Conjunctiva: normal, no exudate, no injection, Sclera: no appreciated abnormality, Lids and lashes: appear normal. 17:05 ENT: External ear(s): are unremarkable, Nose: is normal, Mouth: Lips: moist, Oral mucosa: pink and intact, moist, Posterior pharynx: Airway: no evidence of obstruction, patent. 17:05 Neck: ROM/movement: is normal, is supple, without pain, no range of motions limitations. 17:05 Chest/axilla: Inspection: normal. 17:05 Cardiovascular: Rate: normal, Rhythm: regular, Edema: is not appreciated, JVD: is not appreciated. 17:05 Respiratory: the patient does not display signs of respiratory distress, Respirations: normal, no use of accessory muscles, no retractions, labored breathing, is not present, Breath sounds: are clear throughout, no decreased breath sounds, no stridor, no wheezing. 17:05 Abdomen/GI: Inspection: abdomen appears normal, Palpation: abdomen is soft and non-tender, in all quadrants. 17:05 Neuro: Orientation: to person, place \T\ time. Mentation: is normal, Motor: moves all fours, strength is normal, Sensation: no obvious gross deficits, Abnormal movements: resting tremor, is located in the right hand and left hand. 17:35 ECG was reviewed by the Attending Physician. Vital Signs: 16:42 BP 147 / 94; Pulse 98; Resp 20; Temp 98.5; Pulse Ox 100% ; Weight 63.5 kg; Height 5 ft. kb3 7 in. (170.18 cm); Pain 0/10; 16:42 Body Mass Index 21.93 (63.50 kg, 170.18 cm) kb3 MDM: 16:51 Patient medically screened. cp 17:00 Differential diagnosis: illegal drug use, anxiety, arrythmia, electrolyte abnormality. 18:38 Data reviewed: vital signs, nurses notes, lab test result(s), EKG. 18:38 Test interpretation: by ED physician or midlevel provider: ECG. Counseling: I had a cp detailed discussion with the patient and/or guardian regarding: the historical points, exam findings, and any diagnostic results supporting the discharge/admit diagnosis, lab results, the need for outpatient follow up, a family practitioner, to return to the emergency department if symptoms worsen or persist or if there are any questions or concerns that arise at home. Response to treatment: the patient's symptoms have markedly improved after treatment, and as a result, I will discharge patient. 07/12 16:52 Order name: Acetaminophen; Complete Time: 18:38 cp 12/ 16:52 Order name: Basic Metabolic Panel; Complete Time: 18:38 cp 12/ 18:10 Interpretation: Normal except: K 3.0; GLUC 110. cp 12/ 16:52 Order name: CBC with Diff; Complete Time: 18:10 cp 12/ 18:11 Interpretation: Normal except: RBC 4.27; MCH 35.3; RDW 15.3; EOSINOPHIL % 5.6. cp 12/ 16:52 Order name: ETOH Level; Complete Time: 18:10 cp 12/ 16:52 Order name: Hepatic Function; Complete Time: 18:38 cp 12/ 18:38 Interpretation: Normal except: AST 14; ALK 121. cp / 16:52 Order name: PT-INR; Complete Time: 18:10 cp 12 16:52 Order name: Ptt, Activated; Complete Time: 18:10 cp 12/ 16:52 Order name: Salicylate; Complete Time: 18:10 12/02 16:52 Order name: Urine Drug Screen 07/12 16:52 Order name: EKG; Complete Time: 16:53 cp 12/ 16:52 Order name: EKG - Nurse/Tech; Complete Time: 17:36 cp 07/12 16:52 Order name: IV Saline Lock; Complete Time: 17:17 07/12 16:52 Order name: Labs collected and sent; Complete Time: 17:17 12 16:52 Order name: Urine Dipstick-Ancillary (obtain specimen); Complete Time: 18:16 cp EC:35 Rate is 90 beats/min. Rhythm is regular. DE interval is normal. QRS interval is normal. cp QT interval is normal. T waves are Inverted in lead aVR. Interpreted by me. Reviewed by me. Administered Medications: 18:16 Drug: Ativan (LORazepam) 0.5 mg Route: IVP; Site: left antecubital; ss 18:16 Drug: NS 0.9% 1000 ml Route: IV; Rate: 1 bolus; Site: left antecubital; ss 18:22 Drug: Potassium Effervescent Tablet 50 mEq Route: PO; ss Disposition Summary: 07/12/22 18:37 Discharge Ordered Location: Home cp Problem: new cp Symptoms: have improved cp Condition: Stable cp Diagnosis - Encounter for issue of repeat prescription cp - Insomnia, unspecified cp - Hypokalemia cp Followup: cp - With: Private Physician - When: 2 - 3 days - Reason: Recheck today's complaints Discharge Instructions: - Discharge Summary Sheet cp - Insomnia cp - Hypokalemia cp - Medicine Refill at the Emergency Department cp Forms: - Medication Reconciliation Form cp - Thank You Letter cp - Antibiotic Education cp - Prescription Opioid Use cp Prescriptions: - gabapentin 100 mg Oral capsule - take 2 capsule by ORAL route every 8 hours; 90 capsule; Refills: 0, Product cp Selection Permitted - olanzapine 10 mg Oral tablet - take 1 tablet by ORAL route once daily; 20 tablet; Refills: 0, Product cp Selection Permitted - Amitriptyline 100 mg Oral Tablet - take 1 tablet by ORAL route At bedtime As needed; 30 tablet; Refills: 0, cp Product Selection Permitted - Prazosin 5 mg Oral Capsule - take 1 capsule by ORAL route once daily; 20 capsule; Refills: 0, Product cp Selection Permitted Addendum: 07/16/2022 13:54 Co-signature as Attending Physician, Neeraj Glover MD. r n Signatures: Dispatcher [employer] EDNeeraj Senior MD MD rn Smirch, Shelby, RN RN ss Dale Maya PA PA cp Elle Patel RN RN kb3 Corrections: (The following items were deleted from the chart) 07/12 17:17 16:52 Suicide Screening ([place]) ordered. cp zm 07/13 15:15 07/12 16:55 Patient reports running out of prescribed psych medications about 1 week cp ago and concerned that he is going through withdrawals. cp
--- NOTE | 2022-07-12 18:38 | ER ---
Nurse's Notes [facility] Name: Frandy Victor Age: 42 yrs Sex: Male : 1980 Arrival Date: 07/12/2022 Time: 16:19 Bed DIS3 Private MD: Diagnosis: Encounter for issue of repeat prescription;Insomnia, unspecified;Hypokalemia Presentation: 07/12 16:42 Chief complaint: Patient states: Pt reports he has been out of his Clonopin and kb3 temazepam for 1 week and his prescriptions will not arrive by mail until Fri or . [facility] [place]. Coronavirus screen: Vaccine status: Patient reports receiving the 2nd dose of the covid vaccine. Client denies travel out of the [place] in the last 14 days. Ebola Screen: Patient negative for fever greater than or equal to 101.5 degrees Fahrenheit, and additional compatible Ebola Virus Disease symptoms Patient denies exposure to infectious person. Patient denies travel to an Ebola-affected area in the 21 days before illness onset. Initial Sepsis Screen: Does the patient meet any 2 criteria? No. Patient's initial sepsis screen is negative. Does the patient have a suspected source of infection? No. Patient's initial sepsis screen is negative. Risk Assessment: Do you want to hurt yourself or someone else? Patient reports no desire to harm self or others. Onset of symptoms was July 05, 2022. 16:42 Method Of Arrival: Ambulatory kb3 16:42 Acuity: DAVID 4 kb3 Triage Assessment: 16:45 General: Appears in no apparent distress. Behavior is calm, cooperative. Pain: Denies kb3 pain. Historical: - Allergies: 16:45 Keppra; kb3 - PMHx: 16:45 Anxiety; PTSD; Gastric Ulcers; kb3 - PSHx: 16:45 Hernia repair; kb3 - Immunization history:: Adult Immunizations up to date, Client reports receiving the 2nd dose of the Covid vaccine, Last tetanus immunization: unknown. - Social history:: Smoking status: Patient reports the use of cigarette tobacco products, smokes one pack cigarettes per day. Screenin:47 Abuse screen: Denies threats or abuse. Denies injuries from another. Nutritional ss screening: No deficits noted. Tuberculosis screening: Never had TB. Fall Risk None identified. Assessment: 16:47 General: Appears comfortable, Behavior is cooperative, anxious. General: PT states that ss his insomnia is bothering him the most. HE is getting his medications mailed to him from [place], but they will be here in a week. . Neuro: Level of Consciousness is awake, alert, obeys commands, Oriented to person, place, time, situation. Cardiovascular: Capillary refill < 3 seconds is brisk in bilateral fingers. Respiratory: Airway is patent Respiratory effort is even, unlabored, Respiratory pattern is regular, symmetrical. Derm: Skin is intact, is healthy with good turgor, Skin is dry, Skin is pink, warm \T\ dry. normal. Musculoskeletal: Range of motion: intact in all extremities. 16:47 Reassessment: Patient appears in no apparent distress at this time. Pt appears more ss relaxed, calm is smiling with staff after Medication administration. Patient states feeling better. Vital Signs: 16:42 BP 147 / 94; Pulse 98; Resp 20; Temp 98.5; Pulse Ox 100% ; Weight 63.5 kg; Height 5 ft. kb3 7 in. (170.18 cm); Pain 0/10; 16:42 Body Mass Index 21.93 (63.50 kg, 170.18 cm) kb3 ED Course: 16:19 Patient arrived in ED. mr 16:38 Dale Maya PA is PHCP. cp 16:38 Neeraj Glover MD is Attending Physician. cp 16:45 Triage completed. kb3 16:45 Arm band placed on right wrist. kb3 16:47 Patient has correct armband on for positive identification. Bed in low position. ss 16:47 Inserted saline lock: 22 gauge in left antecubital area, using aseptic technique. Blood ss collected. Patient maintains SpO2 saturation greater than 95% on room air. 18:10 Namita Spivey, JOHNNIE is Primary Nurse. ss 18:48 No provider procedures requiring assistance completed. Patient did not have IV access ss during this emergency room visit. Administered Medications: 18:16 Drug: Ativan (LORazepam) 0.5 mg Route: IVP; Site: left antecubital; ss 18:16 Drug: NS 0.9% 1000 ml Route: IV; Rate: 1 bolus; Site: left antecubital; ss 18:22 Drug: Potassium Effervescent Tablet 50 mEq Route: PO; ss Medication: 16:47 VIS not applicable for this client. ss Outcome: 18:37 Discharge ordered by . cp 18:48 Discharged to home ambulatory. ss 18:48 Condition: good 18:48 Discharge instructions given to patient, Instructed on discharge instructions, follow up and referral plans. Demonstrated understanding of instructions, follow-up care, medications, Prescriptions given X 3. 18:49 Patient left the ED. ss Signatures: BlackmonLudy boykin mr Namita Spivey RN RN ss Dale Maya PA PA cp Bradberry, Kelly, RN RN kb3
[2022-07-12 19:00] VITALS: BP 147/94; TEMP 98.5; O2SAT 100
--- NOTE | 2022-07-15 13:54 | EKG ---
Test Date: 2022-07-12 Test Time: 17:32:25 New Grad Rn: ELIZABETH MEASUREMENT RESULTS: Intervals: Rate: 90 OH: 134 QRSD: 96 QT: 398 QTc: 486 [place]: P: 73 OH: 134 QRS: 30 T: 73 INTERPRETIVE STATEMENTS: Normal sinus rhythm Prolonged QT Abnormal ECG Compared to ECG 04/20/2022 21:43:16 Prolonged QT interval now present Electronically Signed On 07-15-22 13:50:49 LINUX ADMINISTRATOR by Quincy Rahman
== END 2022-07-12 18:49 | disposition home or self-care (01) ==
LOC: ER 16:13
DX: Z76.0 Encounter for issue of repeat prescription (principal); G47.00 Insomnia, unspecified; E87.6 Hypokalemia; F17.210 Nicotine dependence, cigarettes, uncomplicated
CPT/HCPCS: 93005; 85025; 80048; 36415; 80320; 80329 ×2; 85610; 80076; 85730; 80307; 96374; 99284; J7030

== ENCOUNTER 2022-08-18 10:13 | Emergency (ER) | payer OTHER ==
[2022-08-18] MEDS ORDERED: TRAMADOL HCL 50 MG TAB ONE (10:51)
[2022-08-18] MEDS ORDERED: SMZ./TMP. 800/160 MG TABLET ONE (10:52)
--- NOTE | 2022-08-18 11:08 | ER ---
Nurse's Notes [facility] Name: Frandy Victor II Age: 42 yrs Sex: Male : 1980 Arrival Date: 08/18/2022 Time: 10:14 Bed 12 Private MD: Diagnosis: Cellulitis of face;Cellulitis of external ear Presentation: 08/18 10:21 Chief complaint: Right ear pain and swelling x 2 days. Coronavirus screen: At this hb time, the client does not indicate any symptoms associated with coronavirus-19. Ebola Screen: No symptoms or risks identified at this time. Initial Sepsis Screen: Does the patient meet any 2 criteria? No. Patient's initial sepsis screen is negative. Does the patient have a suspected source of infection? No. Patient's initial sepsis screen is negative. Risk Assessment: Do you want to hurt yourself or someone else? Patient reports no desire to harm self or others. Onset of symptoms was August 17, 2022. 10:21 Method Of Arrival: Ambulatory hb 10:21 Acuity: DAVID 4 hb Triage Assessment: 10:26 General: Appears in no apparent distress. uncomfortable, Behavior is calm, cooperative. hb Pain: Pain currently is 9 out of 10 on a pain scale. EENT: right outer eat red and swollen, extends to right cheek. Neuro: Level of Consciousness is awake, alert, obeys commands, Oriented to person, place, time, situation. Cardiovascular: Patient's skin is warm and dry. Respiratory: Respiratory effort is even, unlabored, Respiratory pattern is regular, symmetrical. GI: No signs and/or symptoms were reported involving the gastrointestinal system. : No signs and/or symptoms were reported regarding the genitourinary system. Derm: Skin is pink, warm \T\ dry. Musculoskeletal: No signs and/or symptoms reported regarding the musculoskeletal system. Historical: - Allergies: 10:23 Keppra; hb 10:23 Hydroxyzine; hb - PMHx: 10:23 gastric ulcers; Anxiety; PTSD; hb - PSHx: 10:23 hernia repair; hb - Immunization history:: Adult Immunizations up to date. - Social history:: Smoking status: Patient reports the use of cigarette tobacco products, smokes one-half pack cigarettes per day. - Family history:: not pertinent. - Hospitalizations: : No recent hospitalization is reported. Screenin:27 [facility] ED Fall Risk Assessment (Adult) Score/Fall Risk Level 0 - 2 = Low Risk hb Oriented to surroundings, Maintained a safe environment. Abuse screen: Denies threats or abuse. Denies injuries from another. Nutritional screening: No deficits noted. Tuberculosis screening: No symptoms or risk factors identified. Assessment: 10:27 General: See triage assessment. hb 11:15 Reassessment: Patient is alert, oriented x 3, equal unlabored respirations, skin aa5 warm/dry/pink. Vital Signs: 10:21 BP 96 / 72; Pulse 103; Resp 16; Temp 97.9(TE); Pulse Ox 100% on R/A; Weight 63.5 kg; hb Height 5 ft. 7 in. (170.18 cm); Pain 9/10; 10:21 Body Mass Index 21.93 (63.50 kg, 170.18 cm) hb ED Course: 10:14 Patient arrived in ED. am2 10:21 Neeraj Glover MD is Attending Physician. rn 10:23 Triage completed. hb 10:23 Arm band placed on. hb 10:27 Patient has correct armband on for positive identification. hb 10:27 No provider procedures requiring assistance completed. Patient did not have IV access hb during this emergency room visit. Administered Medications: 10:44 CANCELLED (Duplicate Order): Clindamycin 600 mg IM once rn 10:50 Drug: traMADol 50 mg Route: PO; hb 11:16 Follow up: Response: No adverse reaction aa5 10:50 Drug: Bactrim (trimethoprim-sulfamethoxazole) (160 mg-800 mg (DS) 1 tablet Route: PO; hb 11:15 Follow up: Response: No adverse reaction aa5 10:50 Drug: Clindamycin 300 mg Route: PO; hb 11:15 Follow up: Response: No adverse reaction aa5 Medication: 10:27 VIS not applicable for this client. hb Outcome: 11:08 Discharge ordered by . rn 11:15 Discharged to home ambulatory. aa5 11:15 Condition: stable 11:15 Discharge instructions given to patient, Instructed on discharge instructions, follow up and referral plans. medication usage, Demonstrated understanding of instructions, follow-up care, medications, Prescriptions given X 3. 11:16 Patient left the ED. aa5 Signatures: Neeraj Glover MD MD rn Calderon, Audri, RN RN aa5 Padma Macias RN RN Aziza Gary am2 Corrections: (The following items were deleted from the chart) Chief complaint: Right ear pain and swelling x 3 days hb hb Onset of symptoms was August 15, 2022 hb hb Acuity: DAVID 3 hb hb
--- NOTE | 2022-08-18 11:08 | EDPHYS ---
Physician Documentation [facility] Name: Frandy Victor II Age: 42 yrs Sex: Male : 1980 Arrival Date: 08/18/2022 Time: 10:14 Bed 12 Private MD: ED Physician Neeraj Glover HPI: 08/18 11:04 This 42 yrs old Male presents to ER via Ambulatory with complaints of redness/pain to rn face/ear. 11:04 The patient presents with cellulitis of the face. Description: erythematous, warm. rn Onset: The symptoms/episode began/occurred yesterday. Possible cause(s): unknown. Associated signs and symptoms: Pertinent positives: erythema, swelling, Pertinent negatives: fever. Modifying factors: the symptoms are alleviated by nothing, the symptoms are aggravated by touching. Severity of symptoms: At their worst the symptoms were moderate, in the emergency department the symptoms are unchanged. The patient has not experienced similar symptoms in the past. The patient has not recently seen a physician. Pt reports right side of face and ear hurts, burning sensation, with redness of skin. No fever. No trauma or bite. No dental pain or problem.. Historical: - Allergies: 10:23 Keppra; hb 10:23 Hydroxyzine; hb - PMHx: 10:23 gastric ulcers; Anxiety; PTSD; hb - PSHx: 10:23 hernia repair; hb - Immunization history:: Adult Immunizations up to date. - Social history:: Smoking status: Patient reports the use of cigarette tobacco products, smokes one-half pack cigarettes per day. - Family history:: not pertinent. - Hospitalizations: : No recent hospitalization is reported. ROS: 11:04 Constitutional: Negative for fever, chills, and weight loss, Eyes: Negative for injury, rn pain, redness, and discharge, Neck: Negative for injury, pain, and swelling, Cardiovascular: Negative for chest pain, palpitations, and edema, Respiratory: Negative for shortness of breath, cough, wheezing, and pleuritic chest pain, Abdomen/GI: Negative for abdominal pain, nausea, vomiting, diarrhea, and constipation, Back: Negative for injury and pain, MS/Extremity: Negative for injury and deformity, Skin: + redness to right side of face and ear Neuro: Negative for headache, weakness, numbness, tingling, and seizure. Exam: 11:04 Constitutional: This is a well developed, well nourished patient who is awake, alert, rn and in no acute distress. Head/Face: Normocephalic, atraumatic. Eyes: Pupils equal round and reactive to light, extra-ocular motions intact. No erythema or globe. ENT: Missing all teeth, no intraoral swelling Neck: Trachea midline, no thyromegaly or masses palpated, and no cervical lymphadenopathy. Supple, full range of motion without nuchal rigidity, or vertebral point tenderness. No Meningismus. Skin: + erythema and warmth to right face and ear, no fluctuance or abscess, no evidence of trauma or open wounds. Neuro: Awake and alert, GCS 15, oriented to person, place, time, and situation. Cranial nerves II-XII grossly intact. Motor strength 5/5 in all extremities. Sensory grossly intact. Cerebellar exam normal. Normal gait. Vital Signs: 10:21 BP 96 / 72; Pulse 103; Resp 16; Temp 97.9(TE); Pulse Ox 100% on R/A; Weight 63.5 kg; hb Height 5 ft. 7 in. (170.18 cm); Pain 9/10; 10:21 Body Mass Index 21.93 (63.50 kg, 170.18 cm) hb MDM: 10:21 Patient medically screened. rn 11:04 Differential diagnosis: abscess, cellulitis. Differential diagnosis: periorbital rn cellulitis, considered orbital cellulitis. Data reviewed: vital signs, nurses notes. Counseling: I had a detailed discussion with the patient and/or guardian regarding: the historical points, exam findings, and any diagnostic results supporting the discharge/admit diagnosis, the need for outpatient follow up, to return to the emergency department if symptoms worsen or persist or if there are any questions or concerns that arise at home. Response to treatment: the patient's symptoms have mildly improved after treatment, and as a result, I will discharge patient. Special discussion: I discussed with the patient/guardian in detail that at this point there is no indication for admission to the hospital. It is understood, however, that if the symptoms persist or worsen the patient needs to return immediately for re-evaluation. Based on the history and exam findings, there is no indication for further emergent testing or inpatient evaluation. I discussed with the patient/guardian the need to see the primary care provider for further evaluation of the symptoms. ED course: Will treat as facial/ocular cellulitis, no evidence of orbital cellulitis, although considered, and will dc home with abx. Also considered IM abx here, but pharmacy states not in stock and in back-order.. Administered Medications: 10:44 CANCELLED (Duplicate Order): Clindamycin 600 mg IM once rn 10:50 Drug: traMADol 50 mg Route: PO; hb 11:16 Follow up: Response: No adverse reaction aa5 10:50 Drug: Bactrim (trimethoprim-sulfamethoxazole) (160 mg-800 mg (DS) 1 tablet Route: PO; hb 11:15 Follow up: Response: No adverse reaction aa5 10:50 Drug: Clindamycin 300 mg Route: PO; hb 11:15 Follow up: Response: No adverse reaction aa5 Disposition Summary: 08/18/22 11:08 Discharge Ordered Location: Home rn Problem: new rn Symptoms: have improved rn Condition: Stable rn Diagnosis - Cellulitis of face rn - Cellulitis of external ear rn Followup: rn - With: Private Physician - When: 2 - 3 days - Reason: Recheck today's complaints, Re-evaluation by your physician Discharge Instructions: - Discharge Summary Sheet rn - Cellulitis, Adult rn Forms: - Medication Reconciliation Form rn - Thank You Letter rn - Antibiotic er rn - Prescription Opioid Use rn Prescriptions: - Clindamycin HCl 300 mg Oral Capsule - take 1 capsule by ORAL route every 6 hours for 10 days; 40 capsule; Refills: 0, rn Product Selection Permitted - Tramadol 50 mg Oral Tablet - take 1 tablet by ORAL route every 8 hours as needed; 12 tablet; Refills: 0, rn Product Selection Permitted - Bactrim DS 800-160 mg Oral Tablet - take 1 tablet by ORAL route every 12 hours for 10 days; 20 tablet; Refills: 0, rn Product Selection Permitted Signatures: Neeraj Glover MD MD rn Baxter, Heather, RN RN hb Calderon, Audri RN aa5 Corrections: (The following items were deleted from the chart) :44 10:27 Clindamycin 600 mg IM once ordered. rn rn 10:44 10:35 Clindamycin 600 mg IM once ordered. vickey gallagher
[2022-08-18 11:24] VITALS: BP 96/72; TEMP 97.9; O2SAT 100
== END 2022-08-18 11:16 | disposition home or self-care (01) ==
LOC: ER 10:13
DX: L03.211 Cellulitis of face (principal); H60.11 Cellulitis of right external ear; F17.210 Nicotine dependence, cigarettes, uncomplicated; Z88.8 Allergy status to other drugs, medicaments and biological substances
CPT/HCPCS: 99283

== ENCOUNTER 2022-08-30 15:19 | Observation (INO) | payer OTHER ==
[2022-08-30] MEDS ORDERED: MECLIZINE HCL 12.5 MG TAB ONE (15:38)
[2022-08-30] MEDS ORDERED: ONDANSETRON 4 MG/2 ML VIAL ONE (15:38)
[2022-08-30 15:47] LABS: Urine Blood Negative (Negative); Urine Glucose Negative (Negative); Urine Protein Negative (Negative)
[2022-08-30] MEDS ORDERED: LORAZEPAM 1 MG TABLET ONE (15:54)
[2022-08-30 15:58] LABS: Absolute Lymphocytes (CBC) 1.7 K/uL (0.7-4.9); Hematocrit 37.5 % (39.6-49.0); Lymphocytes % 30.5 % (15.3-44.8); MCV 98.5 fL (80-100); RBC Red Blood Cell Count 3.81 M/uL (4.33-5.43)
[2022-08-30 16:03] LABS: Protime INR 0.97
[2022-08-30 16:09] LABS: Barbiturates NEGATIVE (NEGATIVE); Benzodiazepines NEGATIVE (NEGATIVE); Cocaine NEGATIVE (NEGATIVE); METHAMPHETAM NEGATIVE (NEGATIVE); Methadone NEGATIVE (NEGATIVE); Opiates NEGATIVE (NEGATIVE); Phencyclidine NEGATIVE (NEGATIVE); THC Cannibis NEGATIVE (NEGATIVE)
[2022-08-30 16:17] LABS: ALT/SGPT 14 U/L (16-61); AST/SGOT 16 U/L (15-37); Albumin 3.9 g/dL (3.4-5.0); Alkaline Phosphatase 109 U/L (45-117); BUN Blood Urea Nitrogen 6 mg/dL (7-18); Bicarbonate 29 mmol/L (21-32); Bilirubin Direct 0.1 mg/dL (0-0.2); Bilirubin Total 0.3 mg/dL (0.2-1.0); Glomerular Filtration Rate 110 ml/min (=/>90); Glucose Level 93 mg/dL (74-106); Potassium 3.5 mmol/L (3.5-5.1); Protein, Total 7.3 g/dL (6.4-8.2); Sodium Level 143 mmol/L (136-145); Troponin High Sensitivity 5.4 pg/mL (<58.9)
--- NOTE | 2022-08-30 16:28 | RAD REPORT ---
EXAM DESCRIPTION: CT - CTHCSPWOC - 08/30/2022 3:57 pm CLINICAL HISTORY: fall, dizziness COMPARISON: Head Brain Wo Cont dated 04/20/2022 TECHNIQUE: Axial 5 mm thick images of the head were obtained. Axial 2 mm thick images of the cervic al spine were obtained with sagittal and coronal reconstruction images generated and reviewed. All CT scans are performed using dose optimization technique as appropriate and may include automated exposure control or mA/KV adjustment according to patient size. FINDINGS: No intracranial hemorrhage, mass, edema or acute intracranial finding. No suspicion for ac nathaly infarction. Increased CSF around the cerebellum is a normal presentation and similar to the faisal rison study. Ring-like calcifications at the pineal gland not clinically significant and are unchange d. Mastoid air cells are clear. Facial bones, orbits and sinuses are detailed in separate report. Cervical body height and alignment are normal. No disk space narrowing. No fracture or acute bony abn ormality. Central canal detail is inherently limited. No paraspinal mass or hematoma. IMPRESSION: Negative CT head examination for acute or significant finding. Orbits, sinuses and facial bones are separately detailed. Negative CT cervical spine examination for acute or significant finding.
--- NOTE | 2022-08-30 16:32 | RAD REPORT ---
EXAM DESCRIPTION: CT - Facial Bones W/ Mpr - 08/30/2022 3:56 pm CLINICAL HISTORY: Fall, facial trauma COMPARISON: None. TECHNIQUE: Axial 2 millimeter thick images of the facial bones were obtained with sagittal and coron al reconstruction imaging. All CT scans are performed using dose optimization technique as appropriate and may include automated exposure control or mA/KV adjustment according to patient size. FINDINGS: Mandible is intact with condyles are normally positioned. Patient is edentulous. No erosiv e or destructive changes to the mandible or maxilla. No facial bone is confirmed. Anterior tip of the nasal bone is slightly irregular. Nondisplaced fracture is not entirely excluded. Soft tissues do no t appear abnormally thickened or edematous overlying the nasal bone. Nasal septum is intact with a mi ld right side deviation. No globe or orbital content abnormality seen. Minimal soft tissue injury is seen along the superolate ral orbital ridge. No foreign body is present. Underlying bone is intact. Paranasal sinuses are fully aerated. There is minimal mucosal thickening along the floor of the left maxillary sinus. IMPRESSION: No facial bone fracture is identified. There is very slight irregularity of the anterior tip of the nasal bone. A minimal fracture cannot be excluded if there are symptoms. There is no disp lacement. Minimal soft tissue injury along the right superolateral orbital ridge. Underlying bone is intact.
--- NOTE | 2022-08-30 16:33 | RAD REPORT ---
EXAM DESCRIPTION: RAD - Knee Right 3 View - 08/30/2022 4:14 pm CLINICAL HISTORY: PAIN COMPARISON: No comparisonsNone. FINDINGS: No fracture, dislocation or periosteal reaction.No joint effusion seen. No joint space cherrie rowing. No foreign body or other soft tissue abnormality. IMPRESSION: Negative right knee. Clinical concerns for internal derangement or occult bony injury could be further assessed with MR im aging.
[2022-08-30 16:35] LABS: Phenytoin (Dilantin) Level 36.7 ug/mL (10.0-20.0)
--- NOTE | 2022-08-30 16:54 | EDPHYS ---
Physician Documentation [facility] Name: Frandy Victor II Age: 42 yrs Sex: Male : 1980 Arrival Date: 08/30/2022 Time: 15:21 Bed 5 Private MD: ED Physician Oli Lawton HPI: 08/30 15:40 This 42 yrs old Male presents to ER via EMS with complaints of Dizziness. cp 15:40 The patient presents with dizziness, lightheadedness, feeling off balance. cp 15:40 Onset: The symptoms/episode began/occurred 4 day(s) ago. Associated signs and symptoms: cp Pertinent positives: blurred vision, near-syncope, Pertinent negatives: abdominal pain, chest pain, confusion, syncope. Severity of symptoms: in the emergency department the symptoms are unchanged despite home interventions. Patient's baseline: Neuro: alert and fully oriented, Motor: no deficits, Ambulation: walks without assistance, Speech: normal. 15:40 Patient reports having similar symptoms in the past when Dilantin level was elevated. cp Historical: - Allergies: 15:21 Hydroxyzine; ll1 15:21 Keppra; ll1 - PMHx: 15:21 Anxiety; gastric ulcers; PTSD; ll1 - PSHx: 15:21 hernia repair; ll1 - Immunization history:: Client reports receiving the 2nd dose of the Covid vaccine. - Social history:: Smoking status: Patient reports the use of cigarette tobacco products, smokes one pack cigarettes per day. ROS: 15:45 Constitutional: Negative for body aches, chills, fever, poor PO intake. cp 15:45 Eyes: Positive for blurry vision, Negative for discharge, pain, redness. cp 15:45 ENT: Negative for drainage from ear(s), ear pain, sore throat, difficulty swallowing, difficulty handling secretions. 15:45 Cardiovascular: Negative for chest pain, edema, palpitations. 15:45 Respiratory: Negative for cough, shortness of breath, wheezing. 15:45 Abdomen/GI: Negative for abdominal pain, nausea, vomiting, and diarrhea. 15:45 : Negative for urinary symptoms. 15:45 Neuro: Positive for dizziness, near syncope, Negative for altered mental status, headache, weakness. 15:45 All other systems are negative. Exam: 15:50 Constitutional: The patient appears in no acute distress, alert, awake, cp non-diaphoretic, non-toxic, well developed, well nourished. 15:50 Head/Face: Normocephalic, atraumatic. cp 15:50 Eyes: Periorbital structures: appear normal, Pupils: equal, round, and reactive to light and accomodation, Extraocular movements: intact throughout, Conjunctiva: normal, no exudate, no injection, Sclera: no appreciated abnormality, Lids and lashes: appear normal, bilaterally. 15:50 ENT: External ear(s): are unremarkable, Ear canal(s): are normal, clear, TM's: dullness, bilaterally, Nose: is normal, Mouth: Lips: moist, Oral mucosa: moist, Posterior pharynx: Airway: no evidence of obstruction, patent. 15:50 Neck: ROM/movement: is normal, is supple, without pain, no range of motions limitations, no nuchal rigidity. 15:50 Chest/axilla: Inspection: normal. 15:50 Cardiovascular: Rate: normal, Rhythm: regular, Edema: is not appreciated, JVD: is not appreciated. 15:50 Respiratory: the patient does not display signs of respiratory distress, Respirations: normal, no use of accessory muscles, no retractions, labored breathing, is not present, Breath sounds: are clear throughout, no decreased breath sounds, no stridor, no wheezing. 15:50 Abdomen/GI: Inspection: abdomen appears normal, Palpation: abdomen is soft and non-tender, in all quadrants. 15:50 Back: pain, is absent, ROM is normal. 15:50 Skin: cellulitis, is not appreciated, no rash present. 15:50 Neuro: Orientation: to person, place \T\ time. Mentation: is normal, Cerebellar function: Romberg testing is negative, Motor: moves all fours, strength is normal, Sensation: is normal. 16:18 ECG was reviewed by the Attending Physician. cp Vital Signs: 15:21 BP 139 / 92; Pulse 85; Resp 18; Temp 98.6; Pulse Ox 99% ; Weight 63.5 kg; Height 5 ft. ll1 7 in. (170.18 cm); Pain 6/10; 17:45 BP 144 / 100; Pulse 75; Resp 18; Pulse Ox 99% on R/A; ll1 19:01 BP 145 / 105; Pulse 99; Resp 18; Pulse Ox 100% ; ll1 20:00 BP 106 / 76; Pulse 86; Resp 16; Temp 98; Pulse Ox 100% ; Pain 0/10; pf1 20:30 BP 104 / 76; Pulse 83; Resp 18; Temp 98.3(O); Pulse Ox 99% ; Pain 0/10; pf1 15:21 Body Mass Index 21.93 (63.50 kg, 170.18 cm) ll1 MDM: 15:32 Patient medically screened. 16:45 Data reviewed: vital signs, nurses notes, lab test result(s), EKG. 16:45 Management of patient was discussed with the following: Conference Assistant: DR Beebe who recommends admission, withhold dilantin medication until levels return to wnl and patient w/o symptoms. 18:05 I considered the following discharge prescriptions or medication management in the emergency department Medications were administered in the Emergency Department. See MAR. 18:05 Care significantly affected by the following chronic conditions: seizure disorder. Counseling: I had a detailed discussion with the patient and/or guardian regarding: the historical points, exam findings, and any diagnostic results supporting the discharge/admit diagnosis, lab results, radiology results, the need for further work-up and treatment in the hospital. ED course: discussed admission with Elkin Alston NP who will admit patient. 18:19 ED course: spoke with poison control, case #[id number], recommends serial dilantin levels to monitor decrease and observation with neurology consult. 08/30 15: Order name: Acetaminophen; Complete Time: 16:39 08/30 15: Order name: Basic Metabolic Panel; Complete Time: 16:39 cp 08/30 16:39 Interpretation: Normal except: CL 108; BUN 6; CA 8.4. 08/30 15: Order name: CBC with Diff; Complete Time: 16:39 08/30 16:39 Interpretation: Normal except: RBC 3.81; HGB 13.3; HCT 37.5; MPV 7.0; EOSINOPHIL % cp 11.1; EOSA 0.6. 08/30 15: Order name: ETOH Level; Complete Time: 16:39 08/30 15: Order name: Hepatic Function; Complete Time: 16:39 08/30 15:29 Order name: PT-INR; Complete Time: 16:39 cp 08/30 15:29 Order name: Ptt, Activated; Complete Time: 16:39 cp 08/30 15:29 Order name: Salicylate; Complete Time: 16:39 cp 08/30 15:29 Order name: Urine Drug Screen; Complete Time: 16:39 cp 08/30 15:29 Order name: Dilantin; Complete Time: 16:39 cp 08/30 16:39 Interpretation: Abnormal: PTN 36.7. cp 08/30 15:29 Order name: Troponin High Sensitivity; Complete Time: 16:39 cp 08/30 15:47 Order name: Urine Dipstick-Ancillary; Complete Time: 16:39 EDMS 08/30 18:39 Order name: SARS RAPID eb 08/30 19:12 Order name: SARS-COV-2 Antigen Rapid EDMS 08/30 15:29 Order name: EKG; Complete Time: 15:30 cp 08/30 15:29 Order name: EKG - Nurse/Tech; Complete Time: 16:06 cp 08/30 15:29 Order name: IV Saline Lock; Complete Time: 15:31 cp 08/30 15:29 Order name: Labs collected and sent; Complete Time: 15:31 cp 08/30 15:29 Order name: Suicide Screening ([place]); Complete Time: 15:45 cp 08/30 15:29 Order name: Urine Dipstick-Ancillary (obtain specimen); Complete Time: 15:45 cp 08/30 15:30 Order name: CT Facial Bones W/O Con; Complete Time: 16:39 cp 08/30 15:31 Order name: XRAY Knee RIGHT 3 view; Complete Time: 16:39 cp 08/30 15:31 Order name: CT Head C Spine; Complete Time: 16:39 cp 08/30 17:22 Order name: Diet Regular; Complete Time: 17:22 cp EC:18 Rate is 75 beats/min. Rhythm is regular. NM interval is normal. QRS interval is normal. cp QT interval is normal. T waves are Inverted in lead aVR. Interpreted by me. Reviewed by me. Administered Medications: 15:44 Drug: Meclizine 25 mg Route: PO; ll1 16:06 Follow up: Response: No adverse reaction ll1 15:44 Drug: Zofran (Ondansetron) 4 mg Route: IVP; Site: right antecubital; ll1 16:06 Follow up: Response: No adverse reaction ll1 16:06 Drug: Ativan (LORazepam) 1 mg Route: PO; ll1 16:47 Follow up: Response: No adverse reaction; RASS: Alert and Calm (0) ll1 Disposition: 17:14 Co-signature as Attending Physician, Oli HOOKER was immediately available on-site ms3 in the Emergency Department for consultation in the care of the patient. Disposition Summary: 08/30/22 18:09 Hospitalization Ordered Hospitalization Status: Inpatient Admission cp Location: Telemetry/MedSurg (Inpatient) cp Condition: Stable(08/30/22 18:09) cp Problem: new(08/30/22 18:09) cp Symptoms: are unchanged(08/30/22 18:09) cp Bed/Room Type: Standard cp Provider: Benji Glover(08/30/22 18:10) cp Room Assignment: [facility](08/30/22 20:08) cg Diagnosis - Dilantin Toxicity cp Forms: - Medication Reconciliation Form cp - SBAR form cp Signatures: Dispatcher [employer] EDMS Dale Maya PA PA cp Georgia Ybarra, RN RN cg Yuki Contreras RN RN [facility] Oli Lawton DO DO ms3 Corrections: (The following items were deleted from the chart) 15:41 15:30 Head Brain Wo Cont+CT.RAD.BRZ ordered. EDMS EDMS 18:07 16:53 Doctor cp cp 18:07 16:53 [facility] cp cp 18:07 16:53 Higher level of care cp cp 18:07 16:53 Stable cp cp 18:07 16:53 new cp cp 18:07 16:53 are unchanged cp cp 18:07 16:53 Dilantin Toxicity cp cp 18:10 18:09 Elkin Alston cp cp 20:08 18:09 cp cg
--- NOTE | 2022-08-30 16:54 | ER ---
Nurse's Notes [facility] Name: Frandy Victor II Age: 42 yrs Sex: Male : 1980 Arrival Date: 08/30/2022 Time: 15:21 Bed 5 Private MD: Diagnosis: Dilantin Toxicity Presentation: 08/30 15:21 Chief complaint: Patient states: Dizziness, nausea, double vision for 4 days. history ll1 of dilantin toxicity, states taking med as prescribed. EMS states: FS 102, VSS. Coronavirus screen: Vaccine status: Patient reports receiving the 2nd dose of the covid vaccine. Client denies travel out of the [place] in the last 14 days. At this time, the client does not indicate any symptoms associated with coronavirus-19. Ebola Screen: Patient denies travel to an Ebola-affected area in the 21 days before illness onset. Initial Sepsis Screen: Does the patient meet any 2 criteria? No. Patient's initial sepsis screen is negative. Does the patient have a suspected source of infection? No. Patient's initial sepsis screen is negative. Risk Assessment: Do you want to hurt yourself or someone else? Patient reports no desire to harm self or others. Onset of symptoms was August 27, 2022. 15:21 Method Of Arrival: EMS ll1 15:21 Acuity: DAVID 3 ll1 Triage Assessment: 15:23 General: Appears uncomfortable, Behavior is calm, cooperative, appropriate for age. ll1 Pain: Complains of pain in knees Pain currently is 6 out of 10 on a pain scale. Quality of pain is described as aching. Neuro: Reports diplopia, dizziness. Musculoskeletal: Circulation, motion, and sensation intact. Capillary refill < 3 seconds, Reports pain in B knees, L shoulder. Historical: - Allergies: 15:21 Hydroxyzine; ll1 15:21 Keppra; ll1 - PMHx: 15:21 Anxiety; gastric ulcers; PTSD; ll1 - PSHx: 15:21 hernia repair; ll1 - Immunization history:: Client reports receiving the 2nd dose of the Covid vaccine. - Social history:: Smoking status: Patient reports the use of cigarette tobacco products, smokes one pack cigarettes per day. Screenin:47 [facility] ED Fall Risk Assessment (Adult) History of falling in the last 3 months, ll1 including since admission Yes- physiologic fall (2 pts) Impaired Gait Yes (1 pt) Score/Fall Risk Level 3 or more points = High Risk Oriented to surroundings, Maintained a safe environment, Educated pt \T\ family on fall prevention, incl call for assistance when getting out of bed, Assessed \T\ reinforced patient's understanding of fall precautions, Hourly rounding (assess needs \T\ fall precautionary measures) done. Abuse screen: Denies threats or abuse. Nutritional screening: No deficits noted. Tuberculosis screening: No symptoms or risk factors identified. Assessment: 16:04 Reassessment: No changes from previously documented assessment. Patient and/or family ll1 updated on plan of care and expected duration. Pain level reassessed. Patient is alert, oriented x 3, equal unlabored respirations, skin warm/dry/pink. 16:43 Reassessment: No changes from previously documented assessment. Patient and/or family ll1 updated on plan of care and expected duration. Pain level reassessed. Patient is alert, oriented x 3, equal unlabored respirations, skin warm/dry/pink. 17:02 Reassessment: Initiated transfer to MD. MD credit coordinator states that the [facility] is on diversion for medical/surgical cases. 17:45 Reassessment: No changes from previously documented assessment. Patient and/or family ll1 updated on plan of care and expected duration. Pain level reassessed. 19:30 General: Appears in no apparent distress. comfortable, well groomed, well developed, pf1 Behavior is calm, cooperative, appropriate for age, quiet. 19:30 Pain: Denies pain. Neuro: Reports blurred vision dizziness, since for 2 days. pf1 Cardiovascular: No deficits noted. Capillary refill < 3 seconds Patient's skin is warm and dry. Respiratory: No deficits noted. Airway is patent Trachea midline Respiratory effort is even, unlabored, Respiratory pattern is regular, symmetrical, Breath sounds are clear bilaterally. GI: No deficits noted. No signs and/or symptoms were reported involving the gastrointestinal system. Abdomen is flat, non-distended, Bowel sounds present X 4 quads. : No deficits noted. EENT: No deficits noted. No signs and/or symptoms were reported regarding the EENT system. Derm: No deficits noted. No signs and/or symptoms reported regarding the dermatologic system. 20:30 Reassessment: Patient appears in no apparent distress at this time. No changes from pf1 previously documented assessment. Patient and/or family updated on plan of care and expected duration. Pain level reassessed. Patient is alert, oriented x 3, equal unlabored respirations, skin warm/dry/pink. Patient states symptoms have not improved. 20:50 General: Attempted report, nurse to call back. pf1 Vital Signs: 15:21 BP 139 / 92; Pulse 85; Resp 18; Temp 98.6; Pulse Ox 99% ; Weight 63.5 kg; Height 5 ft. ll1 7 in. (170.18 cm); Pain 6/10; 17:45 BP 144 / 100; Pulse 75; Resp 18; Pulse Ox 99% on R/A; ll1 19:01 BP 145 / 105; Pulse 99; Resp 18; Pulse Ox 100% ; ll1 20:00 BP 106 / 76; Pulse 86; Resp 16; Temp 98; Pulse Ox 100% ; Pain 0/10; pf1 20:30 BP 104 / 76; Pulse 83; Resp 18; Temp 98.3(O); Pulse Ox 99% ; Pain 0/10; pf1 15:21 Body Mass Index 21.93 (63.50 kg, 170.18 cm) ll1 ED Course: 15:21 Patient arrived in ED. ll1 15:21 Arm band placed on Patient placed in an exam room, on a stretcher. ll1 15:23 Triage completed. ll1 15:27 Dale Maya PA is PHCP. cp 15:27 Oli Lawton DO is Attending Physician. cp 15:31 Yuki Contreras, JOHNNIE is Primary Nurse. ll1 15:50 Inserted saline lock: 20 gauge in right antecubital area, using aseptic technique. rs5 Blood collected. 15:50 Acetaminophen Sent. rs5 15:50 Basic Metabolic Panel Sent. rs5 15:50 CBC with Diff Sent. rs5 15:50 ETOH Level Sent. rs5 15:50 Hepatic Function Sent. rs5 15:50 PT-INR Sent. rs5 15:50 Ptt, Activated Sent. rs5 15:50 Salicylate Sent. rs5 15:58 CT Facial Bones W/O Con In Process Unspecified. EDMS 15:58 CT Head C Spine In Process Unspecified. EDMS 16:16 XRAY Knee RIGHT 3 view In Process Unspecified. EDMS 17:46 Patient has correct armband on for positive identification. Bed in low position. Call ll1 light in reach. Side rails up X2. Client placed on continuous cardiac and pulse oximetry monitoring. NIBP monitoring applied. health communications specialist on. 18:09 Elkin Alston FNP-C is Hospitalizing Provider. cp 18:10 Benji Glover MD is Hospitalizing Provider. cp 19:05 SARS RAPID Sent. ll1 20:45 No provider procedures requiring assistance completed. Patient admitted, IV remains in pf1 place. Administered Medications: 15:44 Drug: Meclizine 25 mg Route: PO; ll1 16:06 Follow up: Response: No adverse reaction ll1 15:44 Drug: Zofran (Ondansetron) 4 mg Route: IVP; Site: right antecubital; ll1 16:06 Follow up: Response: No adverse reaction ll1 16:06 Drug: Ativan (LORazepam) 1 mg Route: PO; ll1 16:47 Follow up: Response: No adverse reaction; RASS: Alert and Calm (0) ll1 Medication: 16:48 VIS not applicable for this client. ll1 Outcome: 16:53 ER care complete, transfer ordered by MD. cp 18:09 Decision to Hospitalize by Provider. cp 21:24 Admitted to Tele accompanied by kirti, via wheelchair, room 406, with chart, Report pf1 called to Dionisio.RN 21:24 Condition: stable 21:24 Instructed on the need for admit, Demonstrated understanding of instructions. 22:07 Patient left the ED. pf1 Signatures: Dispatcher [employer] EDWA Namita Spivey RN RN ss Page, Corey, PA PA cp Yuki Contreras RN RN ll1 Veronica espinoza RN RN pf1 Mulugeta Boyd rs5 Corrections: (The following items were deleted from the chart) 20:51 20:30 BP 104 / 76; Pulse 83bpm; Resp 18bpm; Pulse Ox 99%; Pain 0/10; pf1 pf1
--- NOTE | 2022-08-30 19:09 | P.HP ---
Certification for Inpatient Patient admitted to: Observation With expected LOS: <2 Midnights Patient will require the following post-hospital care: None Practitioner: I am a practitioner with admitting privileges, knowledge of patient current condition, hospital course, and medical plan of care. Services: Services provided to patient in accordance with Admission requirements found in Title 42 Section 412.3 of the Code of Federal Regulations Patient History Date of Service: 08/30/22 Reason for admission: Dilantin toxicity History of Present Illness: 42-year-old male with history of PTSD, anxiety, GERD, seizure disorder presents to the emergency department with complaints of dizziness, diplopia, falls. He reports feeling generally unwell the past 3 to 4 days as if he was going to have a seizure, he noticed diplopia which began around 8 AM today and has been intermittent in nature. He reports similar symptoms in the past when his Dilantin levels have been elevated. He was evaluated here in the emergency department his labs were significant for elevated Dilantin level 36.7 CT facial bones given recent fall showed no facial bone fracture identified, very slight irregularity the anterior tip of the nasal bone. A minimal fracture cannot be excluded if there are symptoms. There is no displacement. Minimal soft tissue injury along the right superolateral orbital ridge underlying bone is intact. X-ray of the right knee negative for acute findings CT head C-spine negative for acute findings UDS negative. ED provider discussed case with poison control, neurology recommendations for observation admission, serial Dilantin levels, neurology consult. Allergies levetiracetam [From Keppra] Allergy (Verified 04/20/22 23:40) Nausea/Vomiting hydroxyzine Adverse Reaction (Verified 04/21/22 00:02) increased HR Home Medications: Acetaminophen 2 tab PO Q8H PRN 04/21/22 Amitriptyline HCl 100 mg PO BEDTIME 04/21/22 Celecoxib 200 mg PO BID PRN 04/21/22 Cholecalciferol (Vitamin D3) [Vitamin D3] 1,000 unit PO DAILY 04/21/22 Esomeprazole Mag Trihydrate [Nexium] 40 mg PO BID 04/21/22 Gabapentin 600 mg PO BID 04/21/22 Magnesium Oxide 500 mg PO DAILY 04/21/22 Methylphenidate HCl [Ritalin] 20 mg PO SEECOM 04/21/22 OLANZapine [Zyprexa] 15 mg PO BEDTIME 04/21/22 Phenytoin Sodium Extended [Dilantin] 2 tab PO DAILY 04/21/22 Phenytoin Sodium Extended [Dilantin] 3 tab PO BEDTIME 04/21/22 Prazosin HCl [Minipress] 10 mg PO BEDTIME 04/21/22 Simethicone [Mylicon*] 80 mg PO Q8H PRN 04/21/22 Sucralfate [Carafate*] 1 gm PO BID 04/21/22 Tamsulosin HCl 2 cap PO BEDTIME 04/21/22 Temazepam 30 mg PO BEDTIME 04/21/22 clonazePAM [Clonazepam] 1 mg PO SEECOM 04/21/22 clonazePAM [Clonazepam] 1 mg PO SEECOM 04/21/22 Cholecalciferol (Vitamin D3) [Vitamin D 1000 Iu Tab*] 1,000 unit PO DAILY tab 04/22/22 clonazePAM [Klonopin*] 1 mg PO DAILY@1000 tab 04/22/22 - Past Medical/Surgical History Diabetic: No -: Seizure Disorder -: PTSD -: Mitral Valve Prolapse -: anxiety -: depression -: ADHD -: Umbilical Hernia Repair Psychosocial/ Personal History: Patient lives at home with family - Family History Mother -: Heart disease - Social History Alcohol use: Yes CD- Drugs: No Caffeine use: Yes Place of Residence: Home Review of Systems 10-point ROS is otherwise unremarkable Neurological: Other (Dizziness, diplopia) Physical Examination - Physical Exam General: Alert, In no apparent distress, Oriented x3 HEENT: Atraumatic, PERRLA, Mucous membr. moist/pink, EOMI, Sclerae nonicteric Neck: Supple, 2+ carotid pulse no bruit, No LAD, Without JVD or thyroid abnormality Respiratory: Clear to auscultation bilaterally, Normal air movement Cardiovascular: Regular rate/rhythm, Normal S1 S2 Capillary refill: <2 Seconds Gastrointestinal: Normal bowel sounds, No tenderness Musculoskeletal: No tenderness Integumentary: No rashes Neurological: Normal speech, Normal strength at 5/5 x4 extr, Normal tone, Normal affect - Studies Laboratory Data (last 24 hrs) 08/30/22 15:47: PT 10.7, INR 0.97, APTT 30.8 08/30/22 15:47: WBC 5.50, Hgb 13.3 L, Hct 37.5 L, Plt Count 256 08/30/22 15:47: Sodium 143, Potassium 3.5, BUN 6 L, Creatinine 0.89, Glucose 93, Total Bilirubin 0.3, AST 16, ALT 14 L, Alkaline Phosphatase 109 Assessment and Plan - Plan Assessment: Dilantin toxicity Seizure disorder PTSD/anxiety/BPD/schizophrenia GERD Plan: Dilantin toxicity Case discussed by ED provider with poison control, neurology recommendations for every 6 hour Dilantin levels, conservative/supportive measures. Patient reports taking 200 mg of Dilantin in the morning and 300 mg at night as prescribed. Reports previous history of Dilantin toxicity, no previous dose adjustment. Appreciate further input from neurology in regards to dosing. Seizure disorder Hold Dilantin given toxicity, continue other medications. PTSD/anxiety/BPD/schizophrenia GERD Continue home medications DVT PPX: Lovenox Code status: Full Discharge Plan: Home Plan to discharge in: 24 Hours - Advance Directives Does patient have a Living Will: No Does patient have a Durable POA for Healthcare: No - Code Status/Comfort Care Code Status Assessed: Yes (Full code) Critical Care: No Time Spent Managing Pts Care (In Minutes): 55
[2022-08-30 19:12] LABS: SARS-CoV-2 Antigen Rapid Res Negative (Negative)
[2022-08-30] MEDS ORDERED: ONDANSETRON 4 MG/2 ML VIAL IV PRN (22:37)
[2022-08-30 22:44] VITALS: O2SAT 99
[2022-08-30 22:59] VITALS: BMI 21.9
[2022-08-30] MEDS ORDERED: clonazePAM 1 MG TAB PO PRN (23:17)
[2022-08-30] MEDS ORDERED: CELECOXIB 100 MG CAPSULE PO PRN (23:17)
[2022-08-30] MEDS: HYDROCODONE/APAP 5/325 MG TAB PO PRN (23:52)
[2022-08-30] MEDS: GABAPENTIN 300 MG CAP PO SCH (23:53)
[2022-08-30] MEDS: Ringers Lactate 1,000 ML IV SCH (23:56)
[2022-08-31 04:00] LABS: Hematocrit 34.6 % (39.6-49.0); Lymphocytes % 24.9 % (15.3-44.8); MPV 7.4 fL (7.6-11.3)
[2022-08-31 04:38] LABS: Albumin 2.8 g/dL (3.4-5.0); Bilirubin Total 0.2 mg/dL (0.2-1.0); Phenytoin (Dilantin) Level 28.7 ug/mL (10.0-20.0); Potassium 3.7 mmol/L (3.5-5.1); Protein, Total 5.3 g/dL (6.4-8.2)
[2022-08-31] MEDS: HYDROCODONE/APAP 5/325 MG TAB PO PRN (05:14)
[2022-08-31] MEDS ORDERED: NICOTINE 21 MG/PAT TD SCH (06:00)
[2022-08-31] MEDS: Ringers Lactate 1,000 ML IV SCH (08:02)
[2022-08-31] MEDS: GABAPENTIN 300 MG CAP PO SCH (08:03)
[2022-08-31 08:36] VITALS: BP 114/83; TEMP 98.4
[2022-08-31] MEDS ORDERED: VITAMIN D 1000 UNIT TAB PO SCH (09:00)
[2022-08-31] MEDS ORDERED: ENOXAPARIN 40 MG/0.4 ML SQ SCH (09:00)
[2022-08-31] MEDS ORDERED: POTASSIUM CL SA 10 MEQ TAB PO ONE (09:00)
[2022-08-31] MEDS ORDERED: SUCRALFATE 1 GM TABLET PO SCH (09:00)
[2022-08-31] MEDS ORDERED: OLANZapine 10 MG TABLET PO SCH (21:00)
[2022-08-31] MEDS ORDERED: MELATONIN 3 MG TABLET PO SCH (21:00)
[2022-08-31] MEDS ORDERED: PRAZOSIN HCL 1 MG CAP PO SCH (21:00)
[2022-08-31] MEDS ORDERED: TAMSULOSIN 0.4 MG SR CAP PO SCH (21:00)
[2022-08-31] MEDS ORDERED: TEMAZEPAM 15 MG CAP PO SCH (21:00)
[2022-08-31] MEDS ORDERED: AMITRIPTYLINE 50 MG TAB PO SCH (21:00)
--- NOTE | 2022-09-02 17:00 | EKG ---
Test Date: 2022-08-30 Test Time: 16:11:14 Oxygen Equipment Technician: ROSMERY MEASUREMENT RESULTS: Intervals: Rate: 75 AR: 158 QRSD: 90 QT: 398 QTc: 444 [place]: P: 72 AR: 158 QRS: 17 T: 47 INTERPRETIVE STATEMENTS: Normal sinus rhythm Normal ECG Compared to ECG 07/12/2022 17:32:25 Prolonged QT interval no longer present Electronically Signed On 09-02-22 16:56:10 [employer] by Quincy Rahman
== END 2022-08-31 10:52 | disposition left against medical advice (07) ==
LOC: ER 15:19 → ERHOLD 18:32 → 4TH 20:18
PROVIDERS: ADMIT Hospitalist; ATTEND Hospitalist
DX: R42 Dizziness and giddiness (principal); T42.0X5A Adverse effect of hydantoin derivatives, initial encounter; Y92.019 Unspecified place in single-family (private) house as the place of occurrence of the external cause; G40.909 Epilepsy, unspecified, not intractable, without status epilepticus; K21.9 Gastro-esophageal reflux disease without esophagitis; F41.9 Anxiety disorder, unspecified; F43.10 Post-traumatic stress disorder, unspecified; F20.9 Schizophrenia, unspecified; F31.9 Bipolar disorder, unspecified; Z88.8 Allergy status to other drugs, medicaments and biological substances; Z20.822 Contact with and (suspected) exposure to COVID-19
CPT/HCPCS: 93005; 85025 ×2; 80048; 36415; 85610; 80076; 85730; 80185 ×4; 81003; 84484; 80053; 80307; 70450; 72125; 70486; 76377; 73562; 96374; 99285; 87811; J8597; J1650; J7120 ×2; J2405 ×2; G0378 ×4; G0480 ×3